=== PATIENT | male | born 1995 | race Caucasian/White ===

== ENCOUNTER 2019-11-04 16:46 | Emergency (ER) | payer OTHER ==
[~2019-11-04] VITALS: Ht 188 cm; Wt 88.0 kg
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
[2019-11-04] MEDS ORDERED: OMNIPAQUE 350 MG/ML, 100ML BOTTLE ONE (18:55)
--- NOTE | 2019-11-04 18:57 | NUR ---
REPORT GIVEN TO JADYN SUMMERS. CARE TRANSFERRED AT THIS TIME.
--- NOTE | 2019-11-04 18:58 | NUR ---
report received from christopher oleary.
[2019-11-04 19:10] VITALS: BP 127/72
--- NOTE | 2019-11-04 19:11 | NUR ---
Patient given discharge instructions and they have confirmed that they understand the instructions. Patient ambulatory with steady gait.
== END 2019-11-04 19:12 | disposition home or self-care (01) ==
LOC: ED 17:19
DX: S39.012A Strain of muscle, fascia and tendon of lower back, initial encounter (principal); V00.311A Fall from snowboard, initial encounter; Y93.23 Activity, snow (alpine) (downhill) skiing, snowboarding, sledding, tobogganing and snow tubing; Y92.89 Other specified places as the place of occurrence of the external cause; Y99.8 Other external cause status
CPT/HCPCS: 72132; 99284; Q9967